=== PATIENT | female | born 1935 | race Caucasian/White ===

== ENCOUNTER 2020-07-14 19:05 | Inpatient (IN) | payer MEDICARE, OTHER ==
[~2020-07-14] VITALS: Ht 147.3 cm; Wt 45.8 kg
[2020-07-14] MEDS ORDERED: RIVASTIGMINE PO (19:16)
[2020-07-14] MEDS ORDERED: ALEN70TA69 PO (19:16)
[2020-07-14] MEDS ORDERED: NIFE60TA2 PO (19:16)
[2020-07-14] MEDS ORDERED: MIRT15TA7 PO (19:16)
[2020-07-14] MEDS ORDERED: QUET50TA PO (19:16)
--- NOTE | 2020-07-14 19:47 | NUR ---
Dr Gaviria at bedside for MSE.
[2020-07-14 20:06] LABS: *BILIRUBIN,URIN 1+ (NEGATIVE); *BLOOD, URINE 1+ (NEGATIVE); *CLARITY,URINE CLOUDY (CLEAR); *COLOR,URINE DARK YELLOW (YELLOW); *KETONES,URINE TRACE (NEGATIVE); *UROBILINOGEN,URINE 0.2 E.U./dl (NORMAL); LEUKOCYTE ESTERASE ,URINE 1+ (NEGATIVE); NITRITE, URINE NEGATIVE (NEGATIVE); PH,URINE 5.5 (5.0-8.0); UGLUCOSE NEGATIVE (NEGATIVE)
[2020-07-14 20:16] LABS: *AMPHETAMINE, URINE NEGATIVE (NEGATIVE); *CANNABINOID, URINE NEGATIVE (NEGATIVE); *COCCAINE, URINE NEGATIVE (NEGATIVE); *OPIATE, URINE NEGATIVE (NEGATIVE); *PHENCYCLIDINE SCREEN,URINE NEGATIVE (NEGATIVE)
[2020-07-14 20:36] LABS: BASOPHILS # (AUTO) 0.1 K/uL (0.0-8.0); BASOPHILS % (AUTO) 0.7 % (0.0-2.0); EOSINOPHILS % (AUTO) 0.3 % (0.0-7.0); HEMATOCRIT 30.3 % (31.2-41.9); HEMOGLOBIN 10.4 g/dL (10.9-14.3); LYMPHOCYTES # (AUTO) 0.8 K/uL (20.0-40.0); LYMPHOCYTES % (AUTO) 9.2 % (20.5-51.5); MEAN CORPUSCULAR HEMOGLOBIN 31.7 uug (24.7-32.8); MEAN CORPUSCULAR HGB CONC 34 g/dL (32.3-35.6); MEAN CORPUSCULAR VOLUME 92.3 fL (75.5-95.3); MONOCYTES # (AUTO) 0.6 K/uL (2.0-10.0); MONOCYTES % (AUTO) 7.3 % (0.0-11.0); NEUTROPHILS # (AUTO) 6.8 K/uL (1.8-8.9); NEUTROPHILS % (AUTO) 82.5 % (38.5-71.5); PLATELET COUNT (AUTO) 234 K/uL (179-408); RED BLOOD CELL COUNT(AUTO) 3.29 MIL/uL (3.63-4.92); WHITE BLOOD COUNT (AUTO) 8.3 K/uL (3.8-11.8)
[2020-07-14 20:39] LABS: CARBON DIOXIDE 26 mmol/L (21-32); CHLORIDE 104 mmol/L (98-107); CREATININE 1.1 mg/dL (0.6-1.3); GLUCOSE 101 mg/dL (74-106); POTASSIUM 4.1 mmol/L (3.5-5.1); UREA NITROGEN, BLOOD 29 mg/dL (7-18)
[2020-07-14 20:44] LABS: ACETAMINOPHEN < 2.0 ug/mL (10-30); ALANINE AMINOTRANSFERASE 49 U/L (14-59); ALKALINE PHOSPHATASE 97 U/L (50-136); ASPARTATE AMINOTRANSFERASE 37 U/L (15-37); BILIRUBIN,DIRECT 0.1 mg/dL (0.0-0.2); BILIRUBIN,TOTAL 0.4 mg/dL (0.2-1.0); ETHANOL < 3 MG/DL (0-0)
--- NOTE | 2020-07-14 20:45 | NUR ---
Pt has been medically cleared by Dr. Gaviria. Jerri FUENTES from Psych Eval Team notified.
--- NOTE | 2020-07-14 21:23 | NUR ---
Pt is resting in bed, no signs of distress. Pt's daughter is at bedside offering redirection and re-assurance.
[2020-07-14 21:46] LABS: BACTERIA,URINE MODERATE /HPF (NONE SEEN); SQUAMOUS EPITHELIAL CELL,UR MODERATE /HPF (NONE SEEN); URINE AMORPHOUS URATE MANY /HPF; WBC,URINE 20-50 /HPF (0-3)
--- NOTE | 2020-07-14 21:52 | NUR ---
Jerri RN has evaluated the patient and spoke with patient's daughter. Pt was placed on 5150 hold for grave disability.
[2020-07-14] MEDS ORDERED: levoFLOXacin 750 MG TABLET PO ONE (22:00)
[2020-07-14] MEDS ORDERED: LORAZEPAM 1 MG TABLET ONE (22:15)
[2020-07-14] MEDS ORDERED: LORAZEPAM 0.5 MG TABLET PO ONE (22:15)
[2020-07-14] MEDS ORDERED: levoFLOXacin 750 MG TABLET ONE (22:16)
[2020-07-14] MEDS ORDERED: HALOPERIDOL LACTATE 5 MG/1 ML VIAL ONE (22:59)
[2020-07-14] MEDS ORDERED: HALOPERIDOL LACTATE 5 MG/1 ML VIAL IM ONE (23:00)
--- NOTE | 2020-07-14 23:25 | NUR ---
Report given to Ximena FUENTES.
[2020-07-14 23:45] VITALS: BP 102/67
[2020-07-15] MEDS ORDERED: BLOOD SUGAR DIAGNOSTIC 1 EACH STRIP VI ONE (00:15)
[2020-07-15] MEDS ORDERED: MAG HYDROX/AL HYDROX/SIMETH 30 ML LIQUID UDC PO PRN (00:15)
[2020-07-15] MEDS ORDERED: TEMAZEPAM 7.5 MG CAPSULE PO PRN (00:15)
[2020-07-15] MEDS ORDERED: MAGNESIUM HYDROXIDE 30 ML LIQUID UDC PO PRN (00:15)
--- NOTE | 2020-07-15 02:04 | NUR ---
GPS ADMISSION NOTE: Patient is a 85 year old female , brought in to the hospital from home, by her daughter. Evaluated in our E.R. and put A 5150 for GD. Per hold, the patients daughter brought her to the hospital for increased confusion, restlessness and agitation. Upon face to face evaluation patient is very confused, disoriented and disorganized. Patient refuses to keep cloths on, despite redressing her multiple times. Patient is non redirectable and unable to engage in any meaningful conversation in her primary language which is English. Patient appears restless and unable to be calm. PRN medications given with no effect. Patient continues to put blankets and gowns in her mouth. Patient is hallucinating , visually, grabbing at objects in the air. Patient has poor judgement and needs to be monitored closely for safety. VS are normal, UTI noted in the ER and antibiotics were started. Files Supervisor provided patient with food which was thrown onto the floor. Continue to try and reorient patient if possible, monitor for safety and for behavior escalation. Advisement and Patient Right handbook, plus a calm environment were also provided. Orders Received by Dr. Toussaint. No acute physical distress noted at this time. Assessment of needs will be ongoing d/t patient unable to make needs known.
[2020-07-15] MEDS: CLONAZEPAM 0.5 MG TABLET PO PRN ×2 (04:38→10:07)
--- NOTE | 2020-07-15 05:00 | NUR ---
Patient continues to be restless and trying to disrobe and chew on her cloths. Footwear Sales Representative gave PRN medication, some crackers and a shower to the patient. After shower, patient seems to be calming down a bit. Continuing to monitor for safety and provide basic needs.
[2020-07-15 07:30] VITALS: BP 121/84
[2020-07-15] MEDS: NIFEdipine XL 60 MG TABSR PO SCH ×2 (09:46→10:07)
--- NOTE | 2020-07-15 09:55 | NUR ---
SW FAMILY CONTACT: SW contacted pts daughter Vicki ([phone]) for collateral information, treatment and discharge planning. Daughter states that pt lives at [facility] ([address] [place] [address], /[phone]). She states that pt has been living there for the past 2 months and states that within the last 2 weeks pt has decompensated and began acting bizarre, not sleeping, withdrawn, hallucinating, with depressed mood. Daughter states that pt has been diagnosed with Dementia about 4/5 years ago and states that pt has history of Depression. Per daughter Vicki, pts daughter Noemí Feliz ([phone]) is pts DPOA and states the currently she is camping and away from her phone but can be reached next week for copies of DPOA paperwork. Daughter also states that pt has an Advanced Directive and POLST and asked SW if she can contact the facility so a copy can faxed to place in pts chart. Daughter also states that she is pts primary caregiver and she is the main point of contact. Daughter wishes for pt to return back to [facility].
[2020-07-15] MEDS: levoFLOXacin 500 MG TABLET PO SCH (10:07)
--- NOTE | 2020-07-15 10:10 | NUR ---
called and spoke with Intake , patient was assigned to DR. Montes De Oca since it was assigned 2 days ago and just arrive today, made aware
--- NOTE | 2020-07-15 11:02 | NUR ---
SHUKRI FAMILY CONTACT: SHUKRI contacted pts daughter Noemí Feliz/ DPOA ([phone]) and left a voicemail requesting DPOA paperwork to place in pts chart. Addendum: 07/15/20 at 1302 by THOMAS WATT Per dheeraj Vicki, pts dheeraj Feliz ([phone]) is pts DPOA and states that currently she is camping and away from her phone but can be reached next week for copies of DPOA paperwork.
--- NOTE | 2020-07-15 11:05 | NUR ---
FACILITY CONTACT: SHUKRI contacted [facility] ([address] [place], [place], /[phone]) and spoke with Yesenia, it application administrator who confirmed pt is able to return to the facility once stable for discharge. SHUKRI also requested a copy of Advance Directive and POLST. Per Yesenia, a copy will be faxed.
[2020-07-15] MEDS: QUETIAPINE FUMARATE 25 MG TABLET PO SCH ×2 (11:21→18:15)
[2020-07-15 12:09] LABS: IRON, SERUM 42 ug/dL (50-175)
--- NOTE | 2020-07-15 12:18 | NUR ---
SHUKRI INITIAL DISCHARGE PLAN: Per daughter Vicki ([phone]) pt will be returning to [facility] Address: [facility] [place], [place] . SHUKRI confirmed with Yesenia, educational administrator ([phone]) at the facility that pt will be accepted back once stable for discharge. SHUKRI will help form a safe and proper discharge in collaboration with .
--- NOTE | 2020-07-15 13:00 | NUR ---
SHUKRI COORDINATION OF CARE: SW received POLST from facility and placed in pts chart. Per senior pensions administrator, pt does not have an Advance Directive in file.
--- NOTE | 2020-07-15 14:15 | NUR ---
GROUP NOTE: Pt is unable to attend group therapy due to having Dementia and not being alert and oriented. Pt is demented and unable to engage in a conversation.
[2020-07-15] MEDS: ACETAMINOPHEN 325 MG TABLET PO PRN (14:35)
[2020-07-15 16:00] VITALS: BP 93/52
--- NOTE | 2020-07-15 16:59 | NUR ---
Pt received in caty-chair, assessed, pt unable to make needs known, very confused, responds to name but cannot state name. Pt unable to CFS due to advancing dementia. Pt speaks single words clearly at times in Arabic and Macanese but not cohesive thoughts. Pt continues to attempt to undress throughout entire shift and bite clothing. Often unable to be successfully redirected. Pt takes medications crushed in pudding. All comfort and safety measures implemented. Will continue to monitor Pt for safety.
[2020-07-15 20:32] VITALS: BP 103/61
[2020-07-15] MEDS ORDERED: QUETIAPINE FUMARATE 25 MG TABLET PO SCH (21:00)
[2020-07-15] MEDS: LORAZEPAM 1 MG TABLET PO PRN (23:37)
[2020-07-16] MEDS: ALENDRONATE SODIUM 70 MG TABLET PO SCH (06:12)
[2020-07-16 07:30] VITALS: BP 118/84
[2020-07-16] MEDS: levoFLOXacin 500 MG TABLET PO SCH (08:43)
[2020-07-16] MEDS: QUETIAPINE FUMARATE 25 MG TABLET PO SCH ×2 (08:43→17:17)
--- NOTE | 2020-07-16 11:23 | NUR ---
Gps/Rn House Supervisor- Restless, disrobing , , assisted w her breakfast,, routine meds, was given with apple sauce, fluid offered. Confused, disoriented, safety reviewed, emphasized.
--- NOTE | 2020-07-16 13:16 | NUR ---
SHUKRI UR NOTE: SHUKRI faxed clinicals to Sania, leather case finisher with [employer] (P: [phone] F: [phone]) for review.
[2020-07-16 16:00] VITALS: BP 115/58
[2020-07-16] MEDS ORDERED: QUETIAPINE FUMARATE 25 MG TABLET PO SCH ×2 (17:00→21:00)
[2020-07-16 20:00] VITALS: BP 138/72
[2020-07-16] MEDS: QUETIAPINE FUMARATE 100 MG TABLET PO SCH (20:25)
--- NOTE | 2020-07-16 20:59 | NUR ---
Patient received in caty-chair. patient is unable to make needs known, very confused, responds to name but cannot state name. Pt speaks single words clearly at times in Maori and Greenlandic but not cohesive thoughts. Pt continues to attempt to undress throughout entire shift and bite clothing. Often unable to be successfully redirected. Patient complaint with medication. All comfort and safety measures implemented. Will continue to monitor Pt for safety.
[2020-07-16] MEDS: LORAZEPAM 1 MG TABLET PO PRN (22:03)
[2020-07-17 07:30] VITALS: BP 112/82
[2020-07-17] MEDS: QUETIAPINE FUMARATE 25 MG TABLET PO SCH ×2 (09:07→16:56)
[2020-07-17] MEDS: levoFLOXacin 500 MG TABLET PO SCH (09:07)
[2020-07-17] MEDS: NIFEdipine XL 60 MG TABSR PO SCH (09:08)
--- NOTE | 2020-07-17 09:15 | NUR ---
Gps/Trade Show Specialist-Trying to get out of bed, alarm went off, Assisted to caty-chair, after am care provided. Assisted with her breakfast, difficulty sequencing her task, not following directions, , unable to carry on conversation. Kept up in her caty-chair , restless, fidgety , constantly disrobing, bitting towels , on plastic spoons during feedings . discouraged staff to use plastic spoon, pt. tends to bite it and breaks .Monitored closely for safety.
[2020-07-17] MEDS: LORAZEPAM 1 MG TABLET PO PRN (12:03)
--- NOTE | 2020-07-17 12:20 | NUR ---
INDIVIDUAL INTERVENTION: Pt is unable to attend group therapy due to having Dementia and not being alert and oriented. Pt is demented and unable to engage in a conversation.
[2020-07-17 16:00] VITALS: BP 112/79
[2020-07-17] MEDS: FERROUS SULFATE 325 MG TABEC PO SCH (20:24)
[2020-07-17] MEDS: QUETIAPINE FUMARATE 100 MG TABLET PO SCH (20:24)
[2020-07-17 20:40] VITALS: BP 114/76
--- NOTE | 2020-07-18 06:56 | NUR ---
REMAIN UNCOOERATIVE WITH CARE. KEPT IN MARQUITA CHAIR FOR SAFETY. ASSISTED WITH ADL'S. SLEPT 4.5 HRS THROUGH THE NIGHT. CONTINUE PLAN OF CARE.
[2020-07-18 07:30] VITALS: BP 106/48
[2020-07-18] MEDS: FERROUS SULFATE 325 MG TABEC PO SCH ×2 (09:00→20:05)
[2020-07-18] MEDS: QUETIAPINE FUMARATE 25 MG TABLET PO SCH ×2 (09:00→16:10)
[2020-07-18] MEDS: NIFEdipine XL 60 MG TABSR PO SCH (09:00)
[2020-07-18] MEDS: levoFLOXacin 500 MG TABLET PO SCH (09:00)
[2020-07-18] MEDS: LORAZEPAM 1 MG TABLET PO PRN (09:03)
--- NOTE | 2020-07-18 14:45 | NUR ---
GPS: Nursing Notes: Thought Disorder: Patient is awake and responding to her name, poor impulse control, restless, striking out to staff when assisting her with ADL's, confused, poor insight, impaired judgment, disorganized, responding to internal stimuli by mumbling to self and grabbing the air with her hand, resistant with nursing care, restless behavior, disrobing, bitting her cloth, A/Ox1, redirected and reoriented during shift, unable to formulate a viable plan for self care, continue with treatment plan.
[2020-07-18 16:41] VITALS: BP 126/65
[2020-07-18] MEDS: QUETIAPINE FUMARATE 100 MG TABLET PO SCH (20:05)
[2020-07-18 20:10] VITALS: BP 141/80
--- NOTE | 2020-07-19 05:52 | NUR ---
GPS: Patient Remain confused and disoriented, poor insight, impaired judgment, disorganized, disrobing, bitting her cloth, alert and oriented x1, redirected and reorientation provided the during shift, continue plan of care.
--- NOTE | 2020-07-19 06:52 | NUR ---
slept 2 hrs through the night.
[2020-07-19] MEDS: LORAZEPAM 1 MG TABLET PO PRN ×2 (07:50→13:16)
[2020-07-19 07:56] VITALS: BP 132/87
[2020-07-19] MEDS: NIFEdipine XL 60 MG TABSR PO SCH (08:13)
[2020-07-19] MEDS: FERROUS SULFATE 325 MG TABEC PO SCH ×2 (08:13→20:44)
[2020-07-19] MEDS: QUETIAPINE FUMARATE 25 MG TABLET PO SCH ×2 (08:13→16:37)
[2020-07-19] MEDS: levoFLOXacin 500 MG TABLET PO SCH (10:02)
[2020-07-19] MEDS: ACETAMINOPHEN 325 MG TABLET PO PRN (13:16)
--- NOTE | 2020-07-19 14:40 | NUR ---
GPS: Nursing Notes: Thought Disorder: Patient is awake and responding to her name, poor impulse control, impaired judgment, constantly disrobing, bitting her cloth, resistant with nursing care, confused, disorganized, responding to internal stimuli by constantly grabbing the air, redirected and reoriented during shift, poor appetite, episodes of chewing her food, but spitting it out to the floor, unable to formulate a viable plan for self care, continue with treatment plan.
[2020-07-19 16:36] VITALS: BP 133/74
[2020-07-19 20:32] VITALS: BP 130/72
[2020-07-19] MEDS: QUETIAPINE FUMARATE 100 MG TABLET PO SCH (20:44)
[2020-07-20] MEDS: LORAZEPAM 1 MG TABLET PO PRN ×3 (05:54→23:44)
--- NOTE | 2020-07-20 06:42 | NUR ---
Patient was very restless last night. Continues to take off cloths and is unable to engage in any conversation being very confused. Medications administered in food. Patient only slept 4.00 hours total in the bed last night. Oral intake encouraged and monitored for safety.
[2020-07-20 07:30] VITALS: BP 120/102
[2020-07-20] MEDS: NIFEdipine XL 60 MG TABSR PO SCH (08:46)
[2020-07-20] MEDS: FERROUS SULFATE 325 MG TABEC PO SCH ×2 (08:47→20:58)
[2020-07-20] MEDS: ACETAMINOPHEN 325 MG TABLET PO PRN (08:47)
[2020-07-20] MEDS: HALOPERIDOL LACTATE 10 MG/5 ML ORAL SOLUTION UDC PO SCH ×3 (09:56→16:23)
--- NOTE | 2020-07-20 11:52 | NUR ---
SHUKRI PC Hearing: Patient had probable cause hearing today and it was upheld for grave disability.
--- NOTE | 2020-07-20 13:25 | NUR ---
SHUKRI UR NOTE: Authorization #[id number] SHUKRI spoke with and faxed clinicals to Sania, caser up with [employer] (P: [phone] F: [phone]) for review.
--- NOTE | 2020-07-20 13:41 | NUR ---
SW FAMILY CONTACT: SW received a voicemail from pts daughter Vicki ([phone]) to provide email for her to email this sw the DPOA documents. This SW called and left a voicemail with the requested information and a call back.
[2020-07-20 16:00] VITALS: BP 98/80
[2020-07-20 20:38] VITALS: BP 136/84
[2020-07-20] MEDS: MIRTAZAPINE 15 MG TABLET PO SCH (20:58)
--- NOTE | 2020-07-21 03:02 | NUR ---
RECEIVED PATIENT IN A MARQUITA CHAIR. CONFUSED,DISORGANIZED,IMPAIRED JUDGEMENT AND CONSTANTLY TRYING TO DISROBE. REDIRECTION DID NOT WORK.OCCASIONALLY SEEN GRABBING THINGS FROM THE AIR. ABLE TO GIVE HER MEDS CRUSHED. FED WITH SOME APPLE SAUCE AND PUDDING.GAVE ATIVAN AT 23:45 WITH FAIRLY GOOD EFFECT. VISUAL CHECKS MADE ON HER FOR SAFETY. WILL CONTINUE TO MONITOR.
--- NOTE | 2020-07-21 06:45 | NUR ---
SLEPT FOR 3:30 HOURS.GIVEN A BED BATH. STILL BITING HER CLOTHING AND LIPS.
[2020-07-21 07:30] VITALS: BP 118/56
[2020-07-21] MEDS: FERROUS SULFATE 325 MG TABEC PO SCH ×2 (09:05→20:59)
[2020-07-21] MEDS: HALOPERIDOL LACTATE 10 MG/5 ML ORAL SOLUTION UDC PO SCH ×3 (09:05→16:38)
[2020-07-21] MEDS: NIFEdipine XL 60 MG TABSR PO SCH (09:06)
--- NOTE | 2020-07-21 13:19 | NUR ---
PATIENT SEEN AND EXAMINED BY LINDSAY MCKEON WITH NEW ORDERS AND NOTED PATIENT TO START ON ORAL ATB TONITE.
[2020-07-21] MEDS: SULFAMETH/TRIMETH 800/160 MG TABLET PO SCH ×2 (15:21→20:59)
[2020-07-21 16:47] VITALS: BP 142/74
--- NOTE | 2020-07-21 17:45 | NUR ---
UP ON THE CHAIR CONFUSED DISORIENTED MEDICATION GIVEN WITH MUCH DIFFICULTY MAX ASSIST WITH ALL ADL MADE COMFORTABLE BEN;L CONTINUE TO OBSERVE.
--- NOTE | 2020-07-21 17:46 | NUR ---
REMAIN ON ATB ORDERED WITH NO ADVERSE OR ALLERGIC REACTIONS AT THIS TIME.
[2020-07-21 20:15] VITALS: BP 142/63
[2020-07-21] MEDS: MIRTAZAPINE 15 MG TABLET PO SCH (20:59)
[2020-07-21] MEDS: LORAZEPAM 1 MG TABLET PO PRN (21:45)
--- NOTE | 2020-07-21 21:54 | NUR ---
Confused and disoriented. OOB in gerichair. Patient restless and agitated. Due meds given, crushed with applesauce. Incontinent of bowel and bladder. No BM noted this shift. Ativan 1 mg po given for agitation, tolerated well. Will monitor for any aggressive behavior. VSS.
--- NOTE | 2020-07-22 06:36 | NUR ---
Patient only had 4 hours of sleep. Restless. Needs attended. On gerichair. Incontinent of urine. Kept clean and dry. No BM noted this shift.
[2020-07-22 07:30] VITALS: BP 151/77
[2020-07-22] MEDS: SULFAMETH/TRIMETH 800/160 MG TABLET PO SCH ×2 (08:03→21:02)
[2020-07-22] MEDS: HALOPERIDOL LACTATE 10 MG/5 ML ORAL SOLUTION UDC PO SCH ×4 (08:03→21:04)
[2020-07-22] MEDS: FERROUS SULFATE 325 MG TABEC PO SCH ×2 (08:03→21:02)
[2020-07-22] MEDS: NIFEdipine XL 60 MG TABSR PO SCH (08:03)
--- NOTE | 2020-07-22 15:06 | NUR ---
SW Individual Intervention: SW met with patient to provide brief individual counseling and address patient's labile mood. Patient is uncooperative at this time, confused and disoriented, and is difficult to engage in conversation. SW will continue to remain available for patient and provide interventions as needed.
[2020-07-22 16:00] VITALS: BP 121/40
--- NOTE | 2020-07-22 17:46 | NUR ---
Received patient in the Sharonda chair, patient is confused , disorganized, poor insight, patient behaving bizarrely,patient unable to communicate her need, responding to internal stimuli, would try to put piece of cloth in her mouth , disrobing, constantly moving, needed assistance with ADL and ambulation, patient able to eat her meal and took her medication, no sign of any distress free of injury, will continue monitor
[2020-07-22 20:16] VITALS: BP 101/67
[2020-07-22] MEDS: MIRTAZAPINE 15 MG TABLET PO SCH (21:03)
[2020-07-23] MEDS: ALENDRONATE SODIUM 70 MG TABLET PO SCH (05:46)
[2020-07-23 07:30] VITALS: BP 105/50
[2020-07-23] MEDS: HALOPERIDOL LACTATE 10 MG/5 ML ORAL SOLUTION UDC PO SCH ×4 (08:28→21:00)
[2020-07-23] MEDS: FERROUS SULFATE 325 MG TABEC PO SCH ×2 (08:28→21:00)
[2020-07-23] MEDS: SULFAMETH/TRIMETH 800/160 MG TABLET PO SCH ×2 (08:28→21:08)
[2020-07-23] MEDS: NIFEdipine XL 60 MG TABSR PO SCH (08:29)
--- NOTE | 2020-07-23 09:41 | NUR ---
SHUKRI UR NOTE: Authorization #[id number] SHUKRI faxed clinicals to Sania, trimming caser with [employer] (P: [phone] F: [phone]) for review.
[2020-07-23 16:24] VITALS: BP 90/68
--- NOTE | 2020-07-23 18:15 | NUR ---
received patient on her gerichair, patient calm , no distress, mumbling , patient total care, assisted with ADLs, patient compliant with medication, monitored Q15 for safety
[2020-07-23 20:29] VITALS: BP 95/65
[2020-07-23] MEDS: MIRTAZAPINE 15 MG TABLET PO SCH (21:08)
[2020-07-24] MEDS: Z GUARD REMEDY PASTE 57 GM TUBE TOP PRN (05:38)
[2020-07-24 07:30] VITALS: BP 164/70
[2020-07-24] MEDS: NIFEdipine XL 60 MG TABSR PO SCH (09:32)
[2020-07-24] MEDS: HALOPERIDOL LACTATE 10 MG/5 ML ORAL SOLUTION UDC PO SCH ×3 (09:32→17:44)
[2020-07-24] MEDS: FERROUS SULFATE 325 MG TABEC PO SCH ×2 (09:33→20:19)
--- NOTE | 2020-07-24 15:57 | NUR ---
SHUKRI FAMILY CONTACT: SHUKRI spoke with pts daughter Vicki ([phone]) and discussed discharge plan for Monday back to the [facility]. Vicki stated that she will shrimp picker the patient on Monday at 1pm.
--- NOTE | 2020-07-24 15:57 | NUR ---
SHUKRI UR NOTE: Authorization #[id number] SHUKRI spoke with Sania, binder caser with [employer] (P: [phone] F: [phone]) and discussed discharge plan for Monday. SHUKRI faxed updated clinicals.
[2020-07-24 16:00] VITALS: BP 111/68
[2020-07-24 19:53] VITALS: BP 124/63
[2020-07-24] MEDS: MIRTAZAPINE 15 MG TABLET PO SCH (20:20)
[2020-07-24] MEDS: LORAZEPAM 1 MG TABLET PO PRN (20:20)
--- NOTE | 2020-07-25 06:59 | NUR ---
GPS/Rn - Pt was restless and not able to rest during night. PRN was given ativan and was effective for few hour but pt awake for the rest of the shift. Slept up to 4 hours.
[2020-07-25 07:30] VITALS: BP 104/51
[2020-07-25] MEDS: HALOPERIDOL LACTATE 10 MG/5 ML ORAL SOLUTION UDC PO SCH ×3 (08:25→17:50)
[2020-07-25] MEDS: FERROUS SULFATE 325 MG TABEC PO SCH ×2 (08:26→20:26)
[2020-07-25] MEDS: NIFEdipine XL 60 MG TABSR PO SCH (08:26)
[2020-07-25] MEDS: Z GUARD REMEDY PASTE 57 GM TUBE TOP PRN (08:27)
[2020-07-25 15:37] VITALS: BP 100/67
--- NOTE | 2020-07-25 18:23 | NUR ---
Gps/Template Checker- Stayed in her caty- chair during the day, assisted with her meals,feeder. Continue to noticed, bitting her hands, towels, and utensils during her meals. Lips are dry and cracked. Fluids offered. Coccygeal area redness and noticed excoriations, good alonzo- care, z-guard applied, repositioned /pressure relief.
[2020-07-25 20:01] VITALS: BP 105/61
[2020-07-25] MEDS: MIRTAZAPINE 15 MG TABLET PO SCH (20:26)
[2020-07-25] MEDS: LORAZEPAM 1 MG TABLET PO PRN (20:31)
--- NOTE | 2020-07-26 06:53 | NUR ---
GPS/Rn - Pt is still very confuse and agitated, fidgeting and anxiety constantly moving her cloths off and unable to stay calm, PRN was given and pt was able to sleep well. Awake now and restless in caty-chair. Will continue monitor.
[2020-07-26 07:30] VITALS: BP 116/73
[2020-07-26] MEDS: FERROUS SULFATE 325 MG TABEC PO SCH ×2 (08:06→20:23)
[2020-07-26] MEDS: HALOPERIDOL LACTATE 10 MG/5 ML ORAL SOLUTION UDC PO SCH ×3 (08:06→17:24)
[2020-07-26] MEDS: NIFEdipine XL 60 MG TABSR PO SCH (08:06)
[2020-07-26 16:00] VITALS: BP 108/66
--- NOTE | 2020-07-26 16:22 | NUR ---
Kept up on her caty-chair, needed total assist with her ADLs, and meals. Confused, mumbles, restless,, disrobing , lips area dry, peeling, patient tends to bite , discouraged from doing so.
[2020-07-26] MEDS: MIRTAZAPINE 15 MG TABLET PO SCH (20:23)
[2020-07-26 20:28] VITALS: BP 101/62
[2020-07-26] MEDS: LORAZEPAM 1 MG TABLET PO PRN (23:48)
[2020-07-27] MEDS: Z GUARD REMEDY PASTE 57 GM TUBE TOP PRN (05:27)
[2020-07-27 07:30] VITALS: BP 127/78
[2020-07-27] MEDS: ACETAMINOPHEN 325 MG TABLET PO PRN (08:31)
[2020-07-27] MEDS: FERROUS SULFATE 325 MG TABEC PO SCH (08:31)
[2020-07-27 08:32] VITALS: BP 127/78
[2020-07-27] MEDS: NIFEdipine XL 60 MG TABSR PO SCH (08:32)
[2020-07-27] MEDS: HALOPERIDOL LACTATE 10 MG/5 ML ORAL SOLUTION UDC PO SCH ×2 (08:32→12:39)
--- NOTE | 2020-07-27 08:49 | NUR ---
Discharge Note: Patient will be discharged to [address] ([phone]). Patients daughterVicki ([phone]) is aware and agreeable with discharge plan and will be providing transportation for the patient at 1PM. Yesenia web applications administrator at the facility is made aware of the patients discharge plan and return to facility ([phone]). Patient is aware and agreeable with discharge plan. Patient denies suicidal or homicidal ideation. Patient presents with appropriate mood and congruent affect. Patient will be following up with her psychiatrist Dr. Jose Taylor [address] [place] [address] ([phone]) and her refuge manager Dr. Philomena Milian Address: [address], [place] [address] ([phone]).
--- NOTE | 2020-07-27 08:51 | NUR ---
SHUKRI UR NOTE: Authorization #[id number] SHUKRI faxed Sania, human services case manager with [employer] (P: [phone] F: [phone]) patient's discharge note and med list.
--- NOTE | 2020-07-27 13:05 | NUR ---
GPS: Nursing Notes: Discharge Notes: Patient awake and responding to her name, confused, disoriented, impaired judgment, resistant with nursing care, total care patient, denies SI/HI, denies AH/VH, denies SOB, denies pain or discomfort at this time, discharge to her daughter - Vicki to transport patient to [facility] at [address] [place] [address] . Patient took all her belongings with her, instructions and prescriptions given to daughter. Patient will be following up with her psychiatrist Dr. Jose Taylor [address] [place] [address] ([phone]) and her forestry scientist Dr. Philomena Milian Address: [address], [place] [address] ([phone]).
== END 2020-07-27 13:05 | DRG 885 ==
LOC: ER 19:05 → GPS 23:33
PROVIDERS: ADMIT Psychiatry & Neurology Psychiatry; ATTEND Internal Medicine
DX: F29 Unspecified psychosis not due to a substance or known physiological condition (principal); F02.81 Dementia in other diseases classified elsewhere, unspecified severity, with behavioral disturbance; N39.0 Urinary tract infection, site not specified; F23 Brief psychotic disorder; G30.9 Alzheimer's disease, unspecified; E78.5 Hyperlipidemia, unspecified; D63.8 Anemia in other chronic diseases classified elsewhere; I10 Essential (primary) hypertension; M81.0 Age-related osteoporosis without current pathological fracture; Z90.710 Acquired absence of both cervix and uterus; B96.20 Unspecified Escherichia coli [E. coli] as the cause of diseases classified elsewhere
CPT/HCPCS: 36415; 71045; 83550; 85025; 87077; 87086; 93005; A4663; G0480; J1630; J8499